=== PATIENT | female | born 1945 | race Caucasian/White ===

== ENCOUNTER → 2018-07-20 | Outpatient (CLI) | payer MEDICARE | END | disposition home or self-care (01) | LOC: OIH 12:58 | PROVIDERS: ATTEND Internal Medicine | DX: J44.9 Chronic obstructive pulmonary disease, unspecified (principal); R07.9 Chest pain, unspecified | CPT/HCPCS: 71046 ==

== ENCOUNTER → 2020-11-06 | Outpatient (CLI) | payer MEDICARE | END | disposition home or self-care (01) | LOC: OIH 15:09 | PROVIDERS: ATTEND Internal Medicine | DX: M81.0 Age-related osteoporosis without current pathological fracture (principal); M25.461 Effusion, right knee; M70.50 Other bursitis of knee, unspecified knee | CPT/HCPCS: 73560 ==